=== PATIENT | male | born 1990 | race Caucasian/White ===

== ENCOUNTER → 2022-12-22 | Outpatient (CLI) | payer OTHER ==
--- NOTE | 2022-12-22 08:18 | US ---
EXAMINATION TYPE: US liver DATE OF EXAM: 12/22/2022 COMPARISON: NONE CLINICAL INDICATION: Male, 32 years old with history of R74.01 ELEVATION OF LEVELS OF LIVER TRANSAMIN ASE L; elevated lft's TECHNIQUE: Multiple sonographic images of the right upper quadrant are obtained. FINDINGS: EXAM MEASUREMENTS: Liver Length: 18.0 cm Gallbladder Wall: 0.1 cm CBD: 0.5 cm Right Kidney: 10.0 x 5.2 x 5.3 cm [employer] GUIDE NOTES:bowel gas limits exam Pancreas: not seen Liver: intercostal imaging due to bowel gas, difficult to penetrate Gallbladder: wnl Evidence for sonographic Wilson's sign: no CBD: wnl Right Kidney: wnl Pancreas is not visualized due to overlying bowel gas. Liver is hyperechoic and difficult to penetrat e. This limits sensitivity for intrahepatic masses. No gross evidence of solid or cystic masses are d uctal dilatation. Gallbladder is unremarkable without evidence of wall thickening, pericholecystic fl uid, or cholelithiasis. Per outreach counselor, negative sonographic Wilson sign. Common bile duct within no rmal limits. Right kidney is unremarkable without evidence of hydronephrosis, solid mass, or nephroli thiasis. Corticomedullary differentiation is maintained. IMPRESSION: 1. No acute process. 2. Hepatic steatosis.
== END | disposition home or self-care (01) ==
LOC: RADUSWWP 06:52
PROVIDERS: ATTEND Internal Medicine
DX: K76.0 Fatty (change of) liver, not elsewhere classified (principal); R74.01 Elevation of levels of liver transaminase levels
CPT/HCPCS: 76705

== ENCOUNTER → 2023-06-03 | Outpatient (CLI) | payer OTHER ==
[2023-06-03 16:21] LABS: Ceruloplasmin 17.7 mg/dL (20.0-60.0)
[2023-06-03 21:33] LABS: ALT 39 U/L (10-49); AST 25 U/L (14-35); Albumin 5.2 g/dL (3.8-4.9); Albumin/Globulin Ratio 2.48 Ratio (1.60-3.17); Alkaline Phosphatase 61 U/L (41-126); Bilirubin, Conjugated <0.20 mg/dL (0.20-0.40); Bilirubin,Unconjugated >0.50 mg/dL (0.20-1.00); Blood Urea Nitrogen 16.8 mg/dL (9.0-27.0); Calcium 10.3 mg/dL (8.7-10.3); Carbon Dioxide 22.7 mmol/L (21.6-31.8); Chloride 105 mmol/L (96-109); Globulin 2.1 g/dL (1.6-3.3); Glucose 95 mg/dL (70-110); Potassium 4.6 mmol/L (3.5-5.5); Sodium 142 mmol/L (135-145); Total Bilirubin 0.7 mg/dL (0.3-1.2); Total Protein 7.3 g/dL (6.2-8.2)
[2023-06-05 04:54] LABS: EBV - VCA IgM <10.0 U/mL (<36.0)
[2023-06-05 15:00] LABS: Smooth Muscle Antibody 7 UNITS (<20)
== END | disposition home or self-care (01) ==
LOC: LABWHC1 08:12
PROVIDERS: ATTEND Internal Medicine
DX: R74.01 Elevation of levels of liver transaminase levels (principal)
CPT/HCPCS: 36415; 80053; 82103; 82248; 82390; 82525; 83516; 86644; 86665

== ENCOUNTER → 2023-06-12 | Outpatient (CLI) | payer OTHER | END | disposition home or self-care (01) | LOC: LABWHC1 07:14 | PROVIDERS: ATTEND Internal Medicine | DX: R74.01 Elevation of levels of liver transaminase levels (principal) ==